=== PATIENT | female | born 1970 | race Hispanic/Latino ===

== ENCOUNTER → 2017-06-08 | Outpatient (CLI) | payer BC ==
--- NOTE | 2017-06-08 10:06 | Diagnostic Imaging Report ---
PROCEDURE:ULTRASOUND GUIDANCE FOR PROCEDURE COMPARISON:None. INDICATIONS:Right and Left Thyroid Nodules FINDINGS:See below. CONCLUSION:Please see the dictation of the biopsy for full clinical details. Dictated by: Mian Naik M.D. on 06/08/2017 at 10:06 Electronically approved by: Mian Naik M.D. on 06/08/2017 at 10:06
--- NOTE | 2017-06-08 10:08 | Diagnostic Imaging Report ---
PROCEDURE:ULTRASOUND GUIDANCE FOR PROCEDURE COMPARISON:None. INDICATIONS:Right and Left Thyroid Nodules FINDINGS:See below. CONCLUSION:Please see the dictation of the biopsy for full clinical details. Dictated by: Mian Naik M.D. on 06/08/2017 at 10:08 Electronically approved by: Mian Naik M.D. on 06/08/2017 at 10:08
--- NOTE | 2017-06-08 10:12 | Diagnostic Imaging Report ---
PROCEDURE:BIOPSY THYROID FNA COMPARISON:None. INDICATIONS:Right and Left Thyroid Nodules FINDINGS: See below. CONCLUSION: Please see the dictation of the biopsy for full clinical details. Dictated by: Mian Naik M.D. on 06/08/2017 at 10:12 Electronically approved by: Mian Naik M.D. on 06/08/2017 at 10:12
--- NOTE | 2017-06-08 10:38 | Diagnostic Imaging Report ---
PROCEDURE:BIOPSY THYROID FNA COMPARISON:Thyroid ultrasound 04/23/2017 from outside hospital. INDICATIONS:Right and Left Thyroid Nodules FINDINGS: Focused sonographic evaluation of the neck demonstrated bilateral thyroid nodules. Safe approaches were determined. The neck was prepped and draped in the usual sterile fashion. Attention was directed towards the left thyroid lobe nodule. 1% lidocaine was infused into the subcutaneous tissues for local anesthesia. Utilizing direct sonographic guidance, fine needle aspiration biopsy samples x4 were obtained with 25 gauge needles. The specimens were given to pathology, who was at bedside. The pathologist determined the specimens to be of proper cellularity for diagnosis. Upon completion, no hematoma was visualized. Attention was directed towards the right thyroid lobe nodule. 1% lidocaine was infused into the subcutaneous tissues for local anesthesia. Utilizing direct sonographic guidance, fine needle aspiration biopsy samples x4 were obtained with 25 gauge needles. The specimens were given to pathology, who was at bedside. The pathologist determined the specimens to be of proper cellularity for diagnosis. Upon completion, no hematoma was visualized. Sterile dressings were applied. The patient tolerated the procedure well, and there were no immediate post-procedural complications. CONCLUSION: Successful ultrasound-guided fine needle aspiration biopsy of the left thyroid nodule. Successful ultrasound-guided fine needle aspiration biopsy of the right thyroid nodule. Dictated by: Mian Naik M.D. on 06/08/2017 at 10:38 Electronically approved by: Mian Naik M.D. on 06/08/2017 at 10:38
== END ==
LOC: US 07:46
PROVIDERS: ATTEND Otolaryngology
DX: E04.2 Nontoxic multinodular goiter (principal)
CPT/HCPCS: 10022; 76942; 88112; 88172; 88173; 88305